=== PATIENT | male | born 2005 | race Caucasian/White ===

== ENCOUNTER 2023-03-13 16:20 | Outpatient (CLI) | payer SELFPAY | END 2023-03-13 16:21 | disposition home or self-care (01) | PROVIDERS: Visit Provider Registered Nurse | DX: Z11.3 Encounter for screening for infections with a predominantly sexual mode of transmission (principal); Z11.59 Encounter for screening for other viral diseases | CPT/HCPCS: 86703; 86803; 87340 ==